=== PATIENT | male | born 1945 | race Caucasian/White ===

== ENCOUNTER 2022-09-19 12:34 | Inpatient (IN) | payer MEDICARE, BC ==
[~2022-09-19 12:34] MED LIST: Iopamidol 300 61% 100 ML VIAL FS ONE
[2022-09-19 13:36] LABS: Hemoglobin 8.8 g/dL (13.5-17.5); Mean Corpuscular HGB CONC 32.4 g/dL (32.0-36.0); Mean Corpuscular Hemoglobin 32.2 pg (27.0-33.0); Mean Corpuscular Volume 99.6 fl (81.2-95.1); Mean Platelet Volume 9.5 fl (7.4-10.4); Platelet Count 184 10x3/uL (150-450); RBC Distribution Width 15.9 % (11.5-14.5); Red Blood Cell (RBC) Count 2.73 10x6/uL (4.32-5.72); White Blood Cell (WBC) Count 7.1 10x3/uL (3.5-10.5)
[2022-09-19 13:59] LABS: ALT (SGPT) 54 U/L (8-55); AST (SGOT) 189 U/L (5-34); Albumin 3.7 g/dL (3.4-4.8); Alkaline Phosphatase 99 U/L (40-110); Anion Gap 15 mmol/L (10-20); BUN (Urea Nitrogen) 41 mg/dL (8.4-25.7); Bilirubin, Total 0.7 mg/dL (0.2-1.2); Calc. Creatinine Clearance 0 mL/min (70-130); Calcium 8.7 mg/dL (7.8-10.44); Carbon Dioxide 22 mmol/L (23-31); Chloride 102 mmol/L (98-107); Estimated GFR 42; Globulin 2.7 g/dL (2.4-3.5); Glucose 93 mg/dL (83-110); Lipase 8 U/L (8-78); Magnesium 1.9 mg/dL (1.6-2.6); Potassium 4.2 mmol/L (3.5-5.1); Protein, Total 6.4 g/dL (5.8-8.1); Sodium 135 mmol/L (136-145)
[2022-09-19] MEDS ORDERED: Acetaminophen 500 MG TAB ONE (14:01)
[2022-09-19 14:16] LABS: Band 21 % (5-11); Lymphocytes 3 % (21-51); Metamyelocyte 3 % (0-0); Monocytes 9 % (0-10)
[2022-09-19 14:17] LABS: Neutrophil 64 % (42-75); Ovalocytes SLIGHT = 2-5 cells (100X) (0-1/hpf)
[2022-09-19 14:18] LABS: Anisocytosis SLIGHT = 6-15 cells (100X) (0-5/hpf); Macrocytosis SLIGHT = 6-15 cells (100X) (0-5/hpf)
[2022-09-19 14:19] LABS: Platelet Adequacy Comment Appears Adequate; Platelet Clumps MODERATE
[2022-09-19 14:20] LABS: MDiff Complete? YES
[2022-09-19] MEDS ORDERED: Vancomycin 1 GM VIAL ONE (14:41)
[2022-09-19] MEDS ORDERED: Cefepime 2 GM VIAL ONE (14:41)
[2022-09-19 15:42] LABS: Bilirubin 3+ (Negative); Blood, Urine 150 (Negative); Clarity Slightly Cloudy (Clear); Glucose, Urine (Dipstick) Normal (Negative); Ketone, Urine 5 mg/dL (Negative); Leukocyte 500 (Negative); Nitrite Negative (Negative); Protein, Urine (Dipstick) 30 mg/dl (Neg-Trace); Specific Gravity, Urine 1.015 (1.005-1.030)
[2022-09-19 15:48] LABS: CAUTI Indications for Culture Dysuria,urgency,freq
[2022-09-19 15:50] LABS: Bacteria/HPF 3+ HPF (None Seen)
[2022-09-19 15:55] LABS: Broad Cast 0-3 LPF (None Seen)
[2022-09-19 15:56] LABS: WBC/HPF 21-50 HPF (0-3)
[2022-09-19 15:57] LABS: Mucous/LPF 1+ LPF (<2+)
[2022-09-19 16:00] LABS: Urine Culture Reflex Yes Yes
[2022-09-19 16:17] LABS: Lactic Acid 1.8 mmol/L (0.5-2.2)
[2022-09-19] MEDS ORDERED: Ondansetron PF 4 MG/2 ML Vial IVP PRN (17:25)
[2022-09-19] MEDS ORDERED: traMADol HCl 50 MG TAB PO PRN (17:29)
[2022-09-19] MEDS ORDERED: cefTRIAXone\\ROCEPHIN 1 GM in Sodium Chloride 0.9% 100 ML IVPB SCH (17:30)
[2022-09-19] MEDS ORDERED: Dextrose 50% Abboject 50 ML SYRINGE SLOW IVP PRN (17:32)
[2022-09-19] MEDS ORDERED: Glucagon 1 MG/ML KIT IM PRN (17:32)
[2022-09-19] MEDS ORDERED: HumaLOG 300 UNITS/3 ML VIAL SC PRN (17:32)
[2022-09-19] MEDS ORDERED: Dextrose 5% in Water 1,000 ML IV PRN (17:32)
[2022-09-19] MEDS: Sodium Chloride 0.9% 1,000 ML IV SCH (19:59)
[2022-09-19] MEDS: cefTRIAXone\\ROCEPHIN 1 GM in Sodium Chloride 0.9% 100 ML IVPB SCH (20:00)
[2022-09-19] MEDS: Heparin 5,000 UNITS/ML VIAL SC SCH (20:01)
[2022-09-19] MEDS: Acetaminophen 325 MG TAB PO PRN (21:08)
[2022-09-20 04:14] LABS: Anion Gap 12 mmol/L (10-20); BUN (Urea Nitrogen) 39 mg/dL (8.4-25.7); Calc. Creatinine Clearance 53 mL/min (70-130); Calcium 8.2 mg/dL (7.8-10.44); Carbon Dioxide 21 mmol/L (23-31); Chloride 107 mmol/L (98-107); Estimated GFR 56; Glucose 75 mg/dL (83-110); Potassium 4.1 mmol/L (3.5-5.1); Sodium 136 mmol/L (136-145)
[2022-09-20 04:16] LABS: Hemoglobin 8.1 g/dL (13.5-17.5); Mean Corpuscular HGB CONC 33.2 g/dL (32.0-36.0); Mean Corpuscular Hemoglobin 32.8 pg (27.0-33.0); Mean Corpuscular Volume 98.8 fl (81.2-95.1); Mean Platelet Volume 9.7 fl (7.4-10.4); Platelet Count 181 10x3/uL (150-450); RBC Distribution Width 15.8 % (11.5-14.5); Red Blood Cell (RBC) Count 2.47 10x6/uL (4.32-5.72); White Blood Cell (WBC) Count 10.2 10x3/uL (3.5-10.5)
[2022-09-20 04:17] LABS: MDiff Complete? YES
[2022-09-20 06:01] LABS: Band 14 % (5-11); Lymphocytes 4 % (21-51); Monocytes 12 % (0-10); Neutrophil 70 % (42-75)
[2022-09-20 06:04] LABS: Anisocytosis SLIGHT = 6-15 cells (100X) (0-5/hpf); Hypochromia SLIGHT = 6-15 cells (100X) (0-5/hpf); Large Platelets SLIGHT (None Seen); Macrocytosis SLIGHT = 6-15 cells (100X) (0-5/hpf); Microcytosis SLIGHT = 6-15 cells (100X) (0-5/hpf); Platelet Adequacy Comment Appears Adequate; Platelet Clumps SLIGHT
[2022-09-20] MEDS: Sodium Chloride 0.9% 1,000 ML IV SCH ×2 (06:13→14:55)
[2022-09-20] MEDS: Levothyroxine Sodium 100 MCG TAB PO SCH (06:13)
[2022-09-20] MEDS: Heparin 5,000 UNITS/ML VIAL SC SCH ×3 (08:43→21:03)
[2022-09-20] MEDS: Allopurinol 100 MG TAB PO SCH (08:43)
[2022-09-20] MEDS: Acetaminophen 325 MG TAB PO PRN (09:13)
[2022-09-20] MEDS ORDERED: Baclofen 10 MG TAB PO PRN (17:24)
[2022-09-20] MEDS ORDERED: Famotidine/PF 20 mg/2ml Vial SLOW IVP SCH (20:45)
[2022-09-20] MEDS ORDERED: Promethazine HCl 12.5 MG, Admixture Fee 1 EACH in Sodium Chloride 0.9% 50 ML IVPB SCH (20:45)
[2022-09-20] MEDS: cefTRIAXone\\ROCEPHIN 1 GM in Sodium Chloride 0.9% 100 ML IVPB SCH (21:03)
[2022-09-21] MEDS ORDERED: chlorproMAZINE HCl 25 MG in Sodium Chloride 0.9% 50 ML IVPB SCH (00:30)
[2022-09-21 05:00] LABS: Hemoglobin 8.9 g/dL (13.5-17.5); Mean Corpuscular HGB CONC 31.7 g/dL (32.0-36.0); Mean Corpuscular Hemoglobin 31.9 pg (27.0-33.0); Mean Corpuscular Volume 100.7 fl (81.2-95.1); Mean Platelet Volume 10.8 fl (7.4-10.4); Platelet Count 187 10x3/uL (150-450); RBC Distribution Width 15.7 % (11.5-14.5); Red Blood Cell (RBC) Count 2.79 10x6/uL (4.32-5.72); White Blood Cell (WBC) Count 11.1 10x3/uL (3.5-10.5)
[2022-09-21 05:05] LABS: ALT (SGPT) 71 U/L (8-55); AST (SGOT) 37 U/L (5-34); Albumin 3.3 g/dL (3.4-4.8); Alkaline Phosphatase 90 U/L (40-110); Anion Gap 13 mmol/L (10-20); BUN (Urea Nitrogen) 32 mg/dL (8.4-25.7); Bilirubin, Total 0.4 mg/dL (0.2-1.2); Calc. Creatinine Clearance 59 mL/min (70-130); Calcium 8.5 mg/dL (7.8-10.44); Carbon Dioxide 20 mmol/L (23-31); Chloride 107 mmol/L (98-107); Estimated GFR 63; Glucose 81 mg/dL (83-110); Potassium 4.4 mmol/L (3.5-5.1); Protein, Total 6.3 g/dL (5.8-8.1); Sodium 136 mmol/L (136-145)
[2022-09-21 05:21] LABS: MDiff Complete? YES
[2022-09-21 05:38] LABS: Band 19 % (5-11); Lymphocytes 5 % (21-51); Monocytes 3 % (0-10); Neutrophil 73 % (42-75)
[2022-09-21 05:40] LABS: Anisocytosis SLIGHT = 6-15 cells (100X) (0-5/hpf); Macrocytosis SLIGHT = 6-15 cells (100X) (0-5/hpf)
[2022-09-21 05:41] LABS: Ovalocytes SLIGHT = 2-5 cells (100X) (0-1/hpf); Platelet Adequacy Comment Appears Adequate; Platelet Clumps SLIGHT
[2022-09-21] MEDS: Levothyroxine Sodium 100 MCG TAB PO SCH (06:23)
[2022-09-21] MEDS: Allopurinol 100 MG TAB PO SCH (09:04)
[2022-09-21] MEDS: Heparin 5,000 UNITS/ML VIAL SC SCH ×3 (09:04→19:52)
[2022-09-21] MEDS: Folic Acid 1 MG TAB PO SCH (09:04)
[2022-09-21] MEDS: Terazosin HCl 5 MG CAP PO SCH (09:05)
[2022-09-21] MEDS ORDERED: Piperacillin/Tazobactam 3.375 GM in Sodium Chloride 0.9% 100 ML IVPB SCH (12:00)
[2022-09-21] MEDS: Piperacillin/Tazobactam 3.375 GM in Sodium Chloride 0.9% 100 ML IVPB SCH ×2 (16:46→23:32)
[2022-09-21] MEDS: Lactated Ringer's 1,000 ML IV SCH (16:46)
[2022-09-21] MEDS: Ferrous Sulfate 325 MG TAB PO SCH (17:19)
[2022-09-21] MEDS: Acetaminophen 325 MG TAB PO PRN (18:31)
[2022-09-21] MEDS ORDERED: Mag-Al 1200 mg/1200 mg/30 ML UDCUP PO PRN (19:56)
[2022-09-21] MEDS ORDERED: Pantoprazole 40 MG VIAL IVP SCH (21:00)
[2022-09-22] MEDS: Lactated Ringer's 1,000 ML IV SCH ×3 (01:41→22:13)
[2022-09-22 04:08] LABS: #Monocytes 0.7 10x3/uL (0.0-1.1); #Neutrophils 6.3 10x3/uL (1.5-8.4); %Basophils 0.4 % (0.0-2.0); %Eosinophils 0.1 % (0.0-6.0); %Lymphocytes 7.4 % (18.0-47.0); %Monocytes 9.2 % (0.0-10.0); %Neutrophils 82.1 % (40.0-75.0); Hemoglobin 9.3 g/dL (13.5-17.5); Mean Corpuscular HGB CONC 33.5 g/dL (32.0-36.0); Mean Corpuscular Hemoglobin 32.5 pg (27.0-33.0); Mean Corpuscular Volume 97.2 fl (81.2-95.1); Mean Platelet Volume 10.1 fl (7.4-10.4); Platelet Count 188 10x3/uL (150-450); RBC Distribution Width 15.3 % (11.5-14.5); Red Blood Cell (RBC) Count 2.86 10x6/uL (4.32-5.72); White Blood Cell (WBC) Count 7.7 10x3/uL (3.5-10.5)
[2022-09-22 04:13] LABS: ALT (SGPT) 53 U/L (8-55); AST (SGOT) 17 U/L (5-34); Albumin 3.1 g/dL (3.4-4.8); Alkaline Phosphatase 86 U/L (40-110); Anion Gap 15 mmol/L (10-20); BUN (Urea Nitrogen) 25 mg/dL (8.4-25.7); Bilirubin, Total 0.8 mg/dL (0.2-1.2); Calc. Creatinine Clearance 67 mL/min (70-130); Calcium 8.3 mg/dL (7.8-10.44); Carbon Dioxide 19 mmol/L (23-31); Chloride 106 mmol/L (98-107); Estimated GFR 74; Globulin 2.9 g/dL (2.4-3.5); Glucose 80 mg/dL (83-110); Potassium 4.1 mmol/L (3.5-5.1); Sodium 136 mmol/L (136-145)
[2022-09-22] MEDS: Levothyroxine Sodium 100 MCG TAB PO SCH (05:00)
[2022-09-22 06:04] VITALS: BMI 22.6
[2022-09-22] MEDS ORDERED: Glucagon 1 MG/ML KIT ONE (06:48)
[2022-09-22] MEDS ORDERED: Iopamidol 0 ML ONE (06:49)
[2022-09-22] MEDS ORDERED: Bupivacaine HCl 0.5%/Epinephrine 1:200,000/PF 30 ml Vial ONE (06:49)
[2022-09-22] MEDS: Piperacillin/Tazobactam 3.375 GM in Sodium Chloride 0.9% 100 ML IVPB SCH ×2 (08:15→15:39)
[2022-09-22] MEDS: Heparin 5,000 UNITS/ML VIAL SC SCH ×3 (08:19→20:37)
[2022-09-22] MEDS: Folic Acid 1 MG TAB PO SCH (08:33)
[2022-09-22] MEDS: Terazosin HCl 5 MG CAP PO SCH (08:33)
[2022-09-22] MEDS: Allopurinol 100 MG TAB PO SCH (08:33)
[2022-09-22] MEDS ORDERED: fentaNYL 50 mcg/mL 1 mL Vial ONE ×2 (09:15→11:27)
[2022-09-22] MEDS ORDERED: PROPOFOL 20 ML ONE (09:15)
[2022-09-22] MEDS ORDERED: Rocuronium Bromide 10 MG/ML (10ML VIAL) ONE (09:32)
[2022-09-22] MEDS ORDERED: Dexamethasone 4 mg/ml Vial ONE (09:32)
[2022-09-22] MEDS ORDERED: Ibuprofen 400 MG TAB PO PRN (10:44)
[2022-09-22] MEDS ORDERED: Lidocaine 2% PF 5 ML VIAL ONE (10:48)
[2022-09-22] MEDS ORDERED: Acetaminophen 500 MG TAB PO SCH (12:00)
[2022-09-22] MEDS: Ferrous Sulfate 325 MG TAB PO SCH (14:08)
[2022-09-22] MEDS: Acetaminophen 500 MG TAB PO SCH ×2 (17:44→20:38)
[2022-09-23] MEDS: Piperacillin/Tazobactam 3.375 GM in Sodium Chloride 0.9% 100 ML IVPB SCH ×2 (00:30→09:17)
[2022-09-23 03:54] LABS: #Monocytes 0.6 10x3/uL (0.0-1.1); #Neutrophils 6.5 10x3/uL (1.5-8.4); %Basophils 0.1 % (0.0-2.0); %Lymphocytes 8.8 % (18.0-47.0); %Monocytes 7.8 % (0.0-10.0); %Neutrophils 82.9 % (40.0-75.0); Hemoglobin 9.6 g/dL (13.5-17.5); Mean Corpuscular HGB CONC 33.9 g/dL (32.0-36.0); Mean Corpuscular Hemoglobin 32.3 pg (27.0-33.0); Mean Corpuscular Volume 95.3 fl (81.2-95.1); Mean Platelet Volume 9.9 fl (7.4-10.4); Platelet Count 198 10x3/uL (150-450); RBC Distribution Width 15.2 % (11.5-14.5); Red Blood Cell (RBC) Count 2.97 10x6/uL (4.32-5.72); White Blood Cell (WBC) Count 7.9 10x3/uL (3.5-10.5)
[2022-09-23] MEDS: Levothyroxine Sodium 100 MCG TAB PO SCH (05:02)
[2022-09-23] MEDS: Folic Acid 1 MG TAB PO SCH (08:00)
[2022-09-23] MEDS: Allopurinol 100 MG TAB PO SCH (08:01)
[2022-09-23] MEDS: Heparin 5,000 UNITS/ML VIAL SC SCH (08:01)
[2022-09-23] MEDS: Acetaminophen 500 MG TAB PO SCH ×2 (08:04→13:03)
[2022-09-23] MEDS ORDERED: Polyethylene Glycol 3350 17 GM Packet PO SCH (09:00)
[2022-09-23 09:12] VITALS: TEMP 98.1
[2022-09-23] MEDS: Terazosin HCl 5 MG CAP PO SCH (09:30)
[2022-09-23 12:32] VITALS: BP 135/66
[2022-09-23] MEDS: Ferrous Sulfate 325 MG TAB PO SCH (13:04)
[2022-09-23] MEDS: Lactated Ringer's 1,000 ML IV SCH (14:50)
== END 2022-09-23 15:40 | disposition home health service (06) | DRG 854 ==
LOC: CSHERS 12:34 → CSHIMCU 18:57 → CSHTELE 09-23 10:15
PROVIDERS: ADMIT Internal Medicine; ATTEND Family Medicine
PROC: 3E03329 Introduction of Other Anti-infective into Peripheral Vein, Percutaneous Approach (ICD-10-PCS; 2022-09-19)
PROC: 0FT44ZZ Resection of Gallbladder, Percutaneous Endoscopic Approach (ICD-10-PCS; principal; 2022-09-22)
DX: A41.9 Sepsis, unspecified organism (principal); E87.20 Acidosis, unspecified; T83.518A Infection and inflammatory reaction due to other urinary catheter, initial encounter; N39.0 Urinary tract infection, site not specified; N17.9 Acute kidney failure, unspecified; K80.10 Calculus of gallbladder with chronic cholecystitis without obstruction; G20 Parkinson's disease; I50.9 Heart failure, unspecified; I11.0 Hypertensive heart disease with heart failure; E78.5 Hyperlipidemia, unspecified; E11.69 Type 2 diabetes mellitus with other specified complication; Y83.8 Other surgical procedures as the cause of abnormal reaction of the patient, or of later complication, without mention of misadventure at the time of the procedure; E03.9 Hypothyroidism, unspecified; I95.9 Hypotension, unspecified; Z88.8 Allergy status to other drugs, medicaments and biological substances; Z79.899 Other long term (current) drug therapy; Z98.890 Other specified postprocedural states
CPT/HCPCS: 36415; 36416; 74177; 76705; 80048; 80053; 81001; 83605; 83690; 83735; 83880; 84484; 85025; 87040; 87077; 87086; 87186; 88304; 93005; 96361; 96365; 96366; 96367; C1889; C1894; C9113; J0692; J0696; J1100; J1611; J1644; J2001; J2405; J2543; J2550; J2704; J3010; J3230; J3370; J3490; J7050; J7120; Q9967; S0028